=== PATIENT | male | born 1950 | race Caucasian/White ===

== ENCOUNTER 2019-08-03 08:47 | Emergency (ER) | payer MEDICARE, MEDICAID ==
[~2019-08-03] VITALS: Ht 172.7 cm; Wt 85.0 kg
[2019-08-03 08:51] VITALS: BP 127/62
== END 2019-08-03 09:28 | disposition home or self-care (01) ==
LOC: ER 08:48
DX: S91.114A Laceration without foreign body of right lesser toe(s) without damage to nail, initial encounter (principal); Z59.0 Homelessness; X58.XXXA Exposure to other specified factors, initial encounter; Y93.89 Activity, other specified; Y92.89 Other specified places as the place of occurrence of the external cause; Y99.8 Other external cause status
CPT/HCPCS: 99283

== ENCOUNTER 2019-08-10 08:32 | Outpatient (CLI) | payer MEDICARE ==
[2019-08-10 10:27] LABS: BASOPHILS % (AUTO) 0.5 % (0-1); EOSINOPHILS # (AUTO) 0.1 X10'3 (0-0.9); EOSINOPHILS % (AUTO) 1.4 % (0-6); HEMATOCRIT 43.5 % (42.0-52.0); HEMOGLOBIN 14.7 g/dl (14.0-17.9); LYMPHOCYTES # (AUTO) 1.4 X10'3 (1.1-4.8); LYMPHOCYTES % (AUTO) 18.5 % (21-51); MEAN CORPUSCULAR HGB CONC 33.7 g/dL (33.0-36.5); MEAN CORPUSCULAR VOLUME 94.9 FL (78-98); MEAN PLATELET VOLUME 9.7 FL (7.4-10.4); MONOCYTES # (AUTO) 0.6 X10'3 (0-0.9); MONOCYTES % (AUTO) 8.6 % (2-12); NEUTROPHILS # (AUTO) 5.3 X10'3 (1.8-7.7); PLATELET COUNT 224 X10'3 (140-440); RED BLOOD COUNT 4.59 X10'6 (4.70-6.10); RED CELL DISTRIBUTION WIDTH 14.3 % (11.5-14.5); WHITE BLOOD COUNT 7.4 X10'3 (4.5-11.0)
[2019-08-10 10:39] LABS: CLARITY,URINE SLIGHTLY CLOUDY (Clear); COLOR,URINE YELLOW (Yellow); GLUCOSE, URINE NEGATIVE (Neg); KETONES,URINE NEGATIVE (Neg); LEUKOCYTE ESTERASE ,URINE NEGATIVE (Neg); NITRITES, URINE NEGATIVE (Neg); OCCULT BLOOD,URINE NEGATIVE (Neg); PROTEIN,URINE NEGATIVE (Neg); UROBILINOGEN,URINE 0.2 E.U/dL (0.2-1.0)
[2019-08-10 10:54] LABS: ALANINE AMINOTRANSFERASE 22 U/L (12-78); ALBUMIN 3.6 G/DL (3.4-5.0); ALKALINE PHOSPHATASE 82 IU/L (46-116); ANION GAP 8 (8-16); ASPARTATE AMINO TRANSFERASE 13 U/L (10-37); BILIRUBIN,TOTAL 0.2 MG/DL (0.1-1.0); BLOOD UREA NITROGEN 14 MG/DL (7-18); BUN/CREATININE RATIO 16.9 (5.4-32.0); CALCIUM 8.9 MG/DL (8.5-10.1); CHLORIDE 107 MMOL/L (99-107); CHOLESTEROL 202 MG/DL (0-200); CREATININE 0.83 MG/DL (0.60-1.10); GLUCOSE 71 MG/DL (70-104); HDL CHOLESTEROL 38 MG/DL (35-60); LDL CHOLESTEROL 138 MG/DL (50-100); POTASSIUM 4.4 MMOL/L (3.5-5.1); SODIUM 143 MMOL/L (135-145); TOTAL CARBON DIOXIDE 27.8 MMOL/L (24-32); TOTAL PROTEIN 7.2 G/DL (6.4-8.2); eGFR > 90 ML/MIN
[2019-08-10 11:05] LABS: UA COLLECTION TYPE VOIDED
[2019-08-10 11:07] LABS: MUCUS STRANDS FEW /LPF (Neg); SQUAMOUS EPITHELIAL CELL,UR MODERATE /LPF (FEW)
[2019-08-10 11:08] LABS: BACTERIA,URINE FEW /HPF (Neg); RBC,URINE 0-2 /HPF (0-2); WBC,URINE 0-4 /HPF (0-4)
[2019-08-10 11:58] LABS: HIV ANTIBODY 1&2 RAPID NON-REACTIVE (Neg)
[2019-08-11 05:16] LABS: HBSAG SCREEN Negative (Negative); HEP A AB, IGM Negative (Negative); HEP B CORE AB, IGM Negative (Negative); HEPATITIS C ANTIBODY <0.1 s/co ratio (0.0-0.9); VITAMIN D, 25-HYDROXY 37.2 ng/mL (30.0-100.0)
[2019-08-11 06:26] LABS: RPR Non Reactive (Non Reactive)
[2019-08-11] MEDS ORDERED: NO HOME MEDS (10:05)
[2019-08-12 11:19] LABS: VITAMIN D, 1,25 DIHYDROXY 50.1 pg/mL (19.9-79.3)
== END 2019-08-10 23:59 | disposition home or self-care (01) ==
LOC: LAB 08:32
PROVIDERS: ATTEND Specialist
DX: Z13.220 Encounter for screening for lipoid disorders (principal); Z11.3 Encounter for screening for infections with a predominantly sexual mode of transmission; Z86.39 Personal history of other endocrine, nutritional and metabolic disease; Z68.28 Body mass index [BMI] 28.0-28.9, adult; Z86.11 Personal history of tuberculosis
CPT/HCPCS: 36415; 71046; 80053; 80074; 81001; 82306; 82465; 82652; 83718; 83721; 84443; 85025; 86592; 86703; 87491

== ENCOUNTER 2019-08-11 09:29 | Inpatient (IN) | payer MEDICARE, MEDICAID ==
[~2019-08-11] VITALS: Ht 172.7 cm; Wt 86.0 kg
[2019-08-11 10:00] LABS: BASOPHILS % (AUTO) 0.4 % (0-1); EOSINOPHILS # (AUTO) 0.1 X10'3 (0-0.9); EOSINOPHILS % (AUTO) 1.2 % (0-6); HEMATOCRIT 43.7 % (42.0-52.0); LYMPHOCYTES # (AUTO) 1.2 X10'3 (1.1-4.8); LYMPHOCYTES % (AUTO) 11.6 % (21-51); MEAN CORPUSCULAR HEMOGLOBIN 32.2 PG (27.0-31.0); MEAN CORPUSCULAR HGB CONC 34.4 g/dL (33.0-36.5); MEAN CORPUSCULAR VOLUME 93.7 FL (78-98); MEAN PLATELET VOLUME 8.7 FL (7.4-10.4); MONOCYTES # (AUTO) 0.8 X10'3 (0-0.9); MONOCYTES % (AUTO) 7.4 % (2-12); NEUTROPHILS # (AUTO) 8.1 X10'3 (1.8-7.7); NEUTROPHILS % (AUTO) 79.4 % (42-75); PLATELET COUNT 216 X10'3 (140-440); RED BLOOD COUNT 4.66 X10'6 (4.70-6.10); RED CELL DISTRIBUTION WIDTH 14.5 % (11.5-14.5); WHITE BLOOD COUNT 10.2 X10'3 (4.5-11.0)
[2019-08-11] MEDS ORDERED: NO HOME MEDS (10:05)
[2019-08-11 10:15] LABS: ALANINE AMINOTRANSFERASE 24 U/L (12-78); ALBUMIN 3.5 G/DL (3.4-5.0); ALBUMIN/GLOBULIN RATIO 0.9 (1.1-1.5); ALKALINE PHOSPHATASE 87 IU/L (46-116); ANION GAP 9 (8-16); ASPARTATE AMINO TRANSFERASE 13 U/L (10-37); BILIRUBIN,TOTAL 0.2 MG/DL (0.1-1.0); BLOOD UREA NITROGEN 12 MG/DL (7-18); BUN/CREATININE RATIO 14.6 (5.4-32.0); CALCIUM 8.5 MG/DL (8.5-10.1); CHLORIDE 106 MMOL/L (99-107); CREATININE 0.82 MG/DL (0.60-1.10); GLUCOSE 97 MG/DL (70-104); SODIUM 142 MMOL/L (135-145); TOTAL CARBON DIOXIDE 26.8 MMOL/L (24-32); TOTAL PROTEIN 7.2 G/DL (6.4-8.2); eGFR > 90 ML/MIN
[2019-08-11 10:16] LABS: PARTIAL THROMBOPLASTIN TIME 26 SECONDS (22-32)
--- NOTE | 2019-08-11 11:40 | NUR ---
PT TO CT SCAN
[2019-08-11] MEDS: normal saline 1000ml 1,000 ML IV SCH ×2 (12:23→22:23)
[2019-08-11] MEDS ORDERED: ondansetron/PF 4mg/2ml inj IV PRN (12:25)
[2019-08-11] MEDS ORDERED: magnesium 2GM in 50ml NS 50 ML IV PRN (12:25)
[2019-08-11] MEDS ORDERED: HYDROcodone/acetaminophen 5mg/325mg tablet PO PRN (12:25)
[2019-08-11] MEDS ORDERED: potassium Cl 20 mEq SR tablet PO PRN ×2 (12:25)
[2019-08-11] MEDS ORDERED: potassium CL 10mEq/100ml bag 100 ML IV PRN ×2 (12:25)
[2019-08-11] MEDS ORDERED: acetaminophen 325mg tablet PO PRN ×2 (12:25)
[2019-08-11] MEDS ORDERED: magnesium Cl slow-release 64mg tablet PO PRN (12:25)
[2019-08-11] MEDS ORDERED: magnesium 4gm in 100ml NS 100 ML IV PRN (12:25)
[2019-08-11] MEDS ORDERED: morphine 2 MG/ML inj. syringe IV PRN (12:25)
--- NOTE | 2019-08-11 14:20 | NUR ---
PT BACK FROM [facility]
[2019-08-11 15:25] VITALS: BP 125/64
[2019-08-11] MEDS ORDERED: FLU VACC QS 2019-20 (6 MOS UP) 60 MCG/0.5 ML VIAL IMVAC ONE (17:00)
--- NOTE | 2019-08-11 17:50 | NUR ---
PAGER ID: [phone] MESSAGE: MAIA Lewis, ext [phone], [id number], Danie, unable to obtain IV access, 5 attempts, PICC nurse paged but have not heard anything.
--- NOTE | 2019-08-11 18:15 | NUR ---
Patient in room PCU 3013. I have received report from Debbie CARVALHO and had the opportunity to ask questions and assume patient care. Still have not heard from PICC nurse. Patient has NS due but has no IV access. Encouraged him to drink water to hydrate. He agrees and would much rather do that than has another IV attempt. Will continue to monitor closely.
--- NOTE | 2019-08-11 18:19 | NUR ---
Problems reprioritized. Patient report given, questions answered & plan of care reviewed with MAIA He.
[2019-08-11 19:00] VITALS: BP_SYST 119; BP_SYST 128; BP_DIAS 67; BP_DIAS 72
[2019-08-11 20:00] VITALS: BP_SYST 108; BP_SYST 97; BP_DIAS 45; BP_DIAS 55; BP_DIAS 58
[2019-08-11] MEDS: docusate sod 100mg capsule PO SCH (20:00)
[2019-08-11] MEDS ORDERED: temazepam 15mg capsule PO PRN (21:00)
[2019-08-11] MEDS: heparin, porcine 5000 units/ml vial SQ SCH (21:53)
[2019-08-11 23:00] VITALS: BP_SYST 109; BP_SYST 97; BP_DIAS 45; BP_DIAS 66
[2019-08-12 03:00] VITALS: BP_SYST 108; BP_SYST 110; BP_DIAS 54; BP_DIAS 59
[2019-08-12 05:47] LABS: BASOPHILS % (AUTO) 0.4 % (0-1); EOSINOPHILS # (AUTO) 0.2 X10'3 (0-0.9); EOSINOPHILS % (AUTO) 1.8 % (0-6); HEMATOCRIT 44.2 % (42.0-52.0); HEMOGLOBIN 15.1 g/dl (14.0-17.9); LYMPHOCYTES # (AUTO) 1.3 X10'3 (1.1-4.8); LYMPHOCYTES % (AUTO) 13.9 % (21-51); MEAN CORPUSCULAR HGB CONC 34.2 g/dL (33.0-36.5); MEAN CORPUSCULAR VOLUME 93.7 FL (78-98); MEAN PLATELET VOLUME 9.2 FL (7.4-10.4); MONOCYTES # (AUTO) 0.8 X10'3 (0-0.9); MONOCYTES % (AUTO) 8.9 % (2-12); NEUTROPHILS # (AUTO) 6.9 X10'3 (1.8-7.7); PLATELET COUNT 206 X10'3 (140-440); RED BLOOD COUNT 4.72 X10'6 (4.70-6.10); RED CELL DISTRIBUTION WIDTH 14.5 % (11.5-14.5); WHITE BLOOD COUNT 9.1 X10'3 (4.5-11.0)
[2019-08-12 05:59] LABS: ALANINE AMINOTRANSFERASE 24 U/L (12-78); ALBUMIN 3.5 G/DL (3.4-5.0); ALBUMIN/GLOBULIN RATIO 0.9 (1.1-1.5); ALKALINE PHOSPHATASE 87 IU/L (46-116); ANION GAP 9 (8-16); ASPARTATE AMINO TRANSFERASE 22 U/L (10-37); BILIRUBIN,TOTAL 0.4 MG/DL (0.1-1.0); BLOOD UREA NITROGEN 12 MG/DL (7-18); BUN/CREATININE RATIO 14.5 (5.4-32.0); CALCIUM 8.5 MG/DL (8.5-10.1); CHLORIDE 106 MMOL/L (99-107); CHOL/HDL RATIO 4.3 (0.00-4.99); CHOLESTEROL 195 MG/DL (0-200); CREATININE 0.83 MG/DL (0.60-1.10); GLUCOSE 101 MG/DL (70-104); HDL CHOLESTEROL 45 MG/DL (35-60); LDL CHOLESTEROL 133 MG/DL (50-100); POTASSIUM 4.1 MMOL/L (3.5-5.1); SODIUM 142 MMOL/L (135-145); TOTAL CARBON DIOXIDE 26.9 MMOL/L (24-32); TOTAL PROTEIN 7.4 G/DL (6.4-8.2); TRIGLYCERIDES 101 MG/DL (20-135); eGFR > 90 ML/MIN
[2019-08-12 06:00] VITALS: BP 99/68
--- NOTE | 2019-08-12 06:00 | NUR ---
Patient in room PCU 3013. I have received report from Ying CARVALHO and had the opportunity to ask questions and assume patient care.
--- NOTE | 2019-08-12 06:15 | NUR ---
Problems reprioritized. Patient report given, questions answered & plan of care reviewed with Nikki CARVALHO.
[2019-08-12] MEDS: heparin, porcine 5000 units/ml vial SQ SCH (07:51)
[2019-08-12] MEDS: docusate sod 100mg capsule PO SCH (07:52)
[2019-08-12 08:00] VITALS: BP_SYST 111; BP_SYST 124; BP_SYST 99; BP_DIAS 66; BP_DIAS 67; BP_DIAS 68
[2019-08-12] MEDS ORDERED: K and/or MAG REPLACEMENT MC SCH (08:00)
[2019-08-12] MEDS: normal saline 1000ml 1,000 ML IV SCH (08:23)
[2019-08-12] MEDS ORDERED: ACET-812 PO (10:16)
--- NOTE | 2019-08-12 10:30 | NUR ---
Spoke with patient regarding discharge deposition. Patient is agreeable to discharge, however is refusing his only new prescription of extra strength tylenol. Patient states that he prefers a liniment that he can rub on his shoulder for pain and will most likely stop by [employer] to buy something like "Fulda balm".
[2019-08-12 11:00] VITALS: BP 107/58
--- NOTE | 2019-08-12 14:00 | NUR ---
Per MD orders, stable for discharge to [facility]. Discharge instructions and new prescriptions reviewed with patient. Patient stated that he does not plan on taking the new prescription of extra strength tylenol because he would prefer a topical such as "[place]" which he says he will most likely purchase at [employer] after discharge. Case management is working to establish a primary care provider for the patient. Discontinued tele monitoring. Patient had no IV access for duration of his stay. All belongings sent with patient. Patient accompanied by nurse to hospital entrance. [place]
[2019-08-12] MEDS ORDERED: AZIT500T9 PO (23:01)
== END 2019-08-12 14:05 | disposition home or self-care (01) | DRG 149 ==
LOC: ER 09:30 → ED HOLD 13:30 → PCU 3S 15:12
PROVIDERS: ADMIT Internal Medicine; ATTEND Internal Medicine
DX: R42 Dizziness and giddiness (principal); R00.1 Bradycardia, unspecified; G43.909 Migraine, unspecified, not intractable, without status migrainosus; M25.511 Pain in right shoulder; G89.29 Other chronic pain; Z86.711 Personal history of pulmonary embolism; Z86.718 Personal history of other venous thrombosis and embolism; Z59.0 Homelessness; Z23 Encounter for immunization
CPT/HCPCS: 36415; 70450; 70544; 70551; 71045; 73020; 80053; 80061; 82306; 83735; 84484; 85025; 85610; 85730; 87081; 93005; 93306; 93880; 97116; 97161; 97530; 99285; G0378; J1644; J7030; Q2037

== ENCOUNTER 2019-08-12 18:41 | Emergency (ER) | payer MEDICARE ==
[~2019-08-12] VITALS: Ht 172.7 cm; Wt 86.0 kg
[~2019-08-12 18:41] MED LIST: ACET-812 PO; NO HOME MEDS
[2019-08-12] MEDS ORDERED: azithromycin 250mg tablet PO ONE (22:15)
[2019-08-12] MEDS ORDERED: AZIT500T9 PO (23:01)
[2019-08-12 23:05] VITALS: BP 113/70
== END 2019-08-12 23:18 | disposition home or self-care (01) ==
LOC: ER 18:41
DX: J18.9 Pneumonia, unspecified organism (principal); J22 Unspecified acute lower respiratory infection; Z86.718 Personal history of other venous thrombosis and embolism; Z86.711 Personal history of pulmonary embolism; Z59.0 Homelessness; Z79.2 Long term (current) use of antibiotics
CPT/HCPCS: 71046; 99283

== ENCOUNTER 2019-08-18 08:29 | Emergency (ER) | payer MEDICARE, MEDICAID ==
[~2019-08-18] VITALS: Ht 172.7 cm; Wt 85.0 kg
[~2019-08-18 08:29] MED LIST changes: +AZIT500T9 PO; -NO HOME MEDS
[2019-08-18 08:53] VITALS: BP 126/67
[2019-08-18] MEDS ORDERED: predniSONE 20 mg tablet PO ONE (11:25)
[2019-08-18] MEDS ORDERED: PRED20TA PO (11:30)
== END 2019-08-18 12:08 | disposition home or self-care (01) ==
LOC: ER 08:30
DX: J34.89 Other specified disorders of nose and nasal sinuses (principal); Z86.711 Personal history of pulmonary embolism; Z86.718 Personal history of other venous thrombosis and embolism; Z59.0 Homelessness; Z79.899 Other long term (current) drug therapy
CPT/HCPCS: 99283; J7512